=== PATIENT | male | born 1985 | race African-American/Black ===

== ENCOUNTER 2021-02-17 04:54 | Emergency (ER) | payer MEDICAID ==
[~2021-02-17] VITALS: Ht 182.9 cm; Wt 76.7 kg
--- NOTE | 2021-02-17 05:00 | NUR ---
[facility] 59 FOR HEARING VOICES +SI NO SPECIFIC PLAN -HI. PT REQUEST TO GO TO [facility]. PT STATES NONCOMPLAINT WITH PYSCH MEDS., PT TO BED 13, GOWNED, SI PRECAUTIONS STARTED, DENIES SOB PT CALM AND COOPERATIVE. VSS, PENDING ER PROVIDER RIDGE
[2021-02-17 05:38] LABS: BASOPHILS % (AUTO) 0.6 % (0.0-2.0); EOSINOPHILS % (AUTO) 2.1 % (0.0-6.0); HEMATOCRIT 38 % (39-51); HEMOGLOBIN 12.4 g/dL (13.5-17.5); LYMPHOCYTES # (AUTO) 1.4 /CMM (0.8-4.8); LYMPHOCYTES % (AUTO) 50.4 % (20.0-44.0); MEAN CORPUSCULAR HGB CONC 32 g/dl (31.0-36.0); MEAN CORPUSCULAR VOLUME 85 fL (80-96); MONOCYTES # (AUTO) 0.4 /CMM (0.1-1.30); MONOCYTES % (AUTO) 14.3 % (2.0-12.0); NEUTROPHILS # (AUTO) 0.9 /CMM (1.8-8.9); NEUTROPHILS % (AUTO) 32.6 % (43.0-81.0); PLATELET COUNT (AUTO) 183 /CMM (150-450); RED BLOOD CELL COUNT(AUTO) 4.52 MIL/uL (4.5-6.0); WHITE BLOOD COUNT (AUTO) 2.8 K/uL (4.3-11.0)
[2021-02-17 05:52] LABS: ALANINE AMINOTRANSFERASE 22 U/L (12-78); ALBUMIN 3.6 g/dL (3.4-5.0); ALCOHOL, BLOOD < 3 mg/dL (0-0); ALKALINE PHOSPHATASE 32 U/L (46-116); ASPARTATE AMINOTRANSFERASE 21 U/L (15-37); BILIRUBIN,DIRECT 0.1 mg/dL (0.0-0.2); BILIRUBIN,TOTAL 0.4 mg/dL (0.2-1.0); CALCIUM, SERUM 8.1 mg/dL (8.5-10.1); CARBON DIOXIDE 31 mmol/L (21-32); CHLORIDE 106 mmol/L (98-107); GLUCOSE 95 mg/dL (74-106); POTASSIUM 4.1 mmol/L (3.5-5.1); SODIUM SERUM 142 mmol/L (136-145); TOTAL PROTEIN, SERUM 7.5 g/dL (6.4-8.2); UREA NITROGEN, BLOOD 11 mg/dL (7-18)
[2021-02-17 05:54] LABS: ACETAMINOPHEN < 2 ug/ml (10-30)
--- NOTE | 2021-02-17 07:03 | NUR ---
COVID SWAB SENT
--- NOTE | 2021-02-17 12:32 | NUR ---
Social Service Consult: human services professional consult requested for suicidal ideation. Patient is a 35-year-old, -[place] male. SW met with the patient at his hospital bed in the emergency department. Patient is alert and oriented x4. Patient appears to be calm. Per patients chart, patient was brought to the emergency department on 02/17/2021 for a psychiatric evaluation due to suicidal ideations with no specific plan. Patient stated he is currently experiencing thoughts of suicide and does not have a plan. Patient stated he currently lives at [address] [place] [address]. Patient stated he is currently receiving Social Security Income. SW asked patient about his history of substance use and patient stated he had one puff [Marijuana] two days ago. Patient stated he has used Methamphetamine in the past and has stopped months ago. Patient stated he has a history of Schizophrenia and Depression. Patient stated that he is compliant with his psychiatric medications and stated he is currently taking Risperidone, Cogentin and Depakote. Patient denies any current hallucinations or delusions however, patient stated he has experienced visual and auditory hallucinations in the past. Patient requests voluntary placement to [facility]. PLAN: SW will fax clinicals to [facility] [phone]. SW will remain available as needed.
--- NOTE | 2021-02-17 12:32 | NUR ---
Social Service Consult: WINDY faxed clinicals to [facility] [phone]. SW will remain available as needed.
--- NOTE | 2021-02-17 14:12 | NUR ---
CALLED [facility] FOR TRANSPORT TO [facility]. ETA 45 MINUTES.
[2021-02-17 18:02] VITALS: BP 135/71
--- NOTE | 2021-02-17 18:03 | NUR ---
patient picked up by private ambulance going to [facility] in no distress.
== END 2021-02-17 18:03 ==
LOC: ER 04:54
DX: F31.9 Bipolar disorder, unspecified (principal); R45.851 Suicidal ideations; F20.9 Schizophrenia, unspecified; Z82.49 Family history of ischemic heart disease and other diseases of the circulatory system; Z20.822 Contact with and (suspected) exposure to COVID-19
CPT/HCPCS: 36415; 80048; 80076; 80299; 80307; 80320; 85025; 87426; 99285; C9803; G0480